=== PATIENT | male | born 1965 | race Caucasian/White ===

== ENCOUNTER 2020-07-12 15:39 | Emergency (ER) | payer OTHER ==
[~2020-07-12] VITALS: Ht 172.7 cm; Wt 81.6 kg
[2020-07-12 15:41] VITALS: BP 127/79
--- NOTE | 2020-07-12 15:50 | NUR ---
Patient ambulated to bed 7 with steady/even gait.
--- NOTE | 2020-07-12 15:53 | NUR ---
55 y/o M coming in from home with c/c left leg pain. 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 Patient states swelling to left ankle x 3 weeks. Wound noted to left big toe, patient states "that started about the same time as well." Patient states he has been without Metformin x 1 month. AccuChek 273. Patient reports associated left calf pain and swelling. Pt describes ankle pain 8/10, dull/constant, non-radiating. Patient describes left calf pain as "tightness" alleviated with ice packs and Tylenol prior to arrival. CMS intact; patient able to feel sensation and freely move left ankle and toes. Patient denies N/V/D, urinary symptoms, loss of appetite, headache, SOB, dizziness, abdominal pain, chest pain. Pt placed onto case monitor. Respirations even/unlabored. Bed locked in lowest position, side rails x 1. PMH: DM2 Meds: Metformin (no prescription fill x 1 month) NKA Sx: Denies
--- NOTE | 2020-07-12 16:27 | NUR ---
x ray at bedside.
--- NOTE | 2020-07-12 16:30 | NUR ---
Lab at bedside
--- NOTE | 2020-07-12 16:45 | NUR ---
Patient resting in semi-fowlers position. No distress noted; pt denies any pain at this time. Respirations even/unlabored. campus monitor in place. Bed locked in lowest position, side rails x 1, call light in reach.
[2020-07-12 16:48] LABS: BASOPHILS % (AUTO) 0.3 % (0.0-2.0); EOSINOPHILS # (AUTO) 0.1 K/uL (0-0.4); EOSINOPHILS % (AUTO) 0.9 % (0.0-4.0); HEMATOCRIT 38.2 % (36-52); HEMOGLOBIN 12.4 g/dL (12.0-18.0); LYMPHOCYTES # (AUTO) 1.9 K/uL (2.0-11.5); LYMPHOCYTES % (AUTO) 13.1 % (20.5-51.1); MEAN CORPUSCULAR HEMOGLOBIN 27 pg (27-31); MEAN CORPUSCULAR HGB CONC 33 g/dL (33-37); MEAN CORPUSCULAR VOLUME 83.1 fL (80-94); MONOCYTES % (AUTO) 6.9 % (1.7-9.3); NEUTROPHILS # (AUTO) 11.3 K/uL (1.8-7.7); NEUTROPHILS % (AUTO) 78.8 % (42.2-75.2); PLATELET COUNT (AUTO) 460 K/uL (140-450); RED BLOOD CELL COUNT(AUTO) 4.59 MIL/uL (4.20-6.10); RED CELL DISTRIBUTION WIDTH 14.1 % (11.6-13.7); WHITE BLOOD COUNT (AUTO) 14.3 K/uL (4.8-10.8)
--- NOTE | 2020-07-12 16:50 | NUR ---
Rt at bedside
--- NOTE | 2020-07-12 16:58 | NUR ---
EMT at bedside for EKG
--- NOTE | 2020-07-12 17:02 | NUR ---
Unable to provide urine sample at this time. PANTERA Fox made aware.
--- NOTE | 2020-07-12 17:05 | NUR ---
Patient provided with cell phone to contact family member.
[2020-07-12 17:07] LABS: ALBUMIN 2.9 g/dL (3.4-5.0); ANION GAP 13.4 (8-16); CARBON DIOXIDE 26.6 mmol/L (21-32); CREATININE 0.9 mg/dL (0.6-1.3); PROTHROMBIN TIME 9.4 secs (10.8-13.4); TOTAL BILIRUBIN 0.2 mg/dL (0.0-1.0)
--- NOTE | 2020-07-12 17:09 | NUR ---
Xray at bedside
--- NOTE | 2020-07-12 17:19 | NUR ---
2 water cups at bedside; pt encouraged to void.
[2020-07-12] MEDS ORDERED: METF-1022 PO (17:38)
[2020-07-12] MEDS ORDERED: CEPH500C16 PO (17:38)
--- NOTE | 2020-07-12 17:45 | NUR ---
Patient resting in semi-fowlers position. No distress noted; pt denies any pain at this time. Respirations even/unlabored. agile tester in place. Bed locked in lowest position, side rails x 1, call light in reach.
--- NOTE | 2020-07-12 17:51 | NUR ---
machines technician transported patient via wheelchair to CT.
--- NOTE | 2020-07-12 18:01 | NUR ---
Patient returned from CT via wheelchair, placed back onto cartography supervisor. Bed locked in lowest position, side rails x 1, call light in reach.
--- NOTE | 2020-07-12 18:36 | NUR ---
Urine sample collected, walked to lab and handed to [employer]bo dairy laboratory technician.
--- NOTE | 2020-07-12 18:36 | NUR ---
Patient resting in semi-fowlers position. Respirations even/unlabored. telemetry monitor in place. Bed locked in lowest position, side rails x 1, call light in reach.
--- NOTE | 2020-07-12 19:23 | NUR ---
Report and transfer of care given to CARLOS A Green.
--- NOTE | 2020-07-12 19:45 | NUR ---
posterior short leg splint placed on pt left leg, wrapped with alex wrap. +csm
--- NOTE | 2020-07-12 20:10 | NUR ---
PT GIVEN INSTRUCTION ON PROPER USE OF CRUTCHES. FITTED TO PT HEIGHT AND ARM LENGTH. PT DEMONSTRATED SAFE USE FOR APPROXIMATELY 40 FEET, PT STATED HE FELT COMFORTABLE WITH USE.
[2020-07-12 20:36] LABS: APPEARANCE,URINE CLEAR (CLEAR); BILIRUBIN,URINE NEGATIVE (NEGATIVE); BLOOD, URINE NEGATIVE (NEGATIVE); COLOR,URINE YELLOW (YELLOW); LEUKOCYTE ESTERASE ,URINE NEGATIVE (NEGATIVE); NITRITE, URINE NEGATIVE (NEGATIVE); UGLUCOSE 3+ (NEGATIVE)
[2020-07-12 20:38] VITALS: BP 156/80
--- NOTE | 2020-07-12 20:38 | NUR ---
Patient discharged with v/s stable. Written and verbal after care instructions given and explained. Patient alert, oriented and verbalized understanding of instructions. Ambulatory with crutches; with steady gait. All questions addressed prior to discharge. ID band removed. Patient advised to follow up with PMD. Rx of Metformin & Keflex given. Patient educated on indication of medication including possible reaction and side effects. Opportunity to ask questions provided and answered.
== END 2020-07-12 20:38 | disposition home or self-care (01) ==
LOC: MED 15:39
DX: S92.145A Nondisplaced dome fracture of left talus, initial encounter for closed fracture (principal); S92.342A Displaced fracture of fourth metatarsal bone, left foot, initial encounter for closed fracture; S92.002A Unspecified fracture of left calcaneus, initial encounter for closed fracture; S92.212A Displaced fracture of cuboid bone of left foot, initial encounter for closed fracture; E11.621 Type 2 diabetes mellitus with foot ulcer; Z79.84 Long term (current) use of oral hypoglycemic drugs; Z79.899 Other long term (current) drug therapy; X50.1XXA Overexertion from prolonged static or awkward postures, initial encounter; Y93.89 Activity, other specified; Y92.89 Other specified places as the place of occurrence of the external cause; Y99.8 Other external cause status
CPT/HCPCS: 29515; 36415; 36600; 71045; 73610; 73630; 73700; 80053; 81003; 82550; 82553; 82803; 83605; 83874; 83880; 84484; 85025; 85610; 85730; 87040; 87086; 93005; 99285

== ENCOUNTER 2020-08-06 13:41 | Emergency (ER) | payer OTHER ==
[~2020-08-06] VITALS: Ht 175.3 cm; Wt 81.6 kg
[~2020-08-06 13:41] MED LIST: CEPH500C16 PO; METF-1022 PO
[2020-08-06 14:02] VITALS: BP 162/106
--- NOTE | 2020-08-06 14:09 | NUR ---
Patient ambulated to bed 07 with steady/even gait.
--- NOTE | 2020-08-06 14:20 | NUR ---
55 y/o M brought in from home with c/c left foot pain. Patient presents A&Ox4, ambulatory and states he was seen here and discharged on 07/12/20 with prescribed Keflex. Patient states he completed the Keflex treatment and symptoms improved 4-5 days after completion and came back. Patient presents with left ankle pain and left calf swelling. Patient reports pain to ankle 9/10, sharp/intermittent, non-radiating. Patient's left calf notably swollen and +warmth noted to left calf. Patient states laying supine and RICE technique helps relief pain. Patient states resting helps his pain, however, is unable to be off his feet due to his line of work. Patient reports diabetic foot ulcer to left 1st digit has healed. No drainage, open wounds/cuts noted to left lower extremity. Pt denies N/V/D, fever/chills, abdominal pain, chest pain, dizziness, headache, urinary symptoms. 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 Bed locked in lowest position, side rails x 1, call light in reach. PMH: DM Meds: Metformin NKA Sx: Denies
--- NOTE | 2020-08-06 14:24 | NUR ---
Dr. Loera is evaluating the patient at bedside.
[2020-08-06 14:50] VITALS: BP 142/75
--- NOTE | 2020-08-06 14:50 | NUR ---
Patient discharged with v/s stable. Written and verbal after care instructions given and explained. Patient verbalized understanding. Ambulatory with steady gait. All questions addressed prior to discharge. Advised to follow up with PMD.
== END 2020-08-06 14:50 | disposition home or self-care (01) ==
LOC: MED 13:41
DX: S92.812A Other fracture of left foot, initial encounter for closed fracture (principal); E11.9 Type 2 diabetes mellitus without complications; F17.210 Nicotine dependence, cigarettes, uncomplicated; X58.XXXA Exposure to other specified factors, initial encounter; Y93.89 Activity, other specified; Y92.89 Other specified places as the place of occurrence of the external cause; Y99.8 Other external cause status
CPT/HCPCS: 99281

== ENCOUNTER 2020-12-12 12:54 | Emergency (ER) | payer OTHER ==
[~2020-12-12] VITALS: Ht 172.7 cm; Wt 77.6 kg
[2020-12-12 14:13] VITALS: BP 113/60
[2020-12-12] MEDS ORDERED: KETOROLAC 30 MG/ML VIAL IM ONE (15:00)
[2020-12-12] MEDS ORDERED: cefTRIAXone 1,000 MG in LIDOCAINE MPF 1% 2.1 ML IM ONE (15:00)
[2020-12-12] MEDS ORDERED: IBUP-2213 PO (15:04)
[2020-12-12] MEDS ORDERED: BACI1PAC6 TP (15:04)
[2020-12-12] MEDS ORDERED: CEPH-588 PO (15:04)
[2020-12-12] MEDS ORDERED: cefTRIAXone 1,000 MG VIAL ONE (15:08)
[2020-12-12] MEDS ORDERED: LIDOCAINE MPF 1% 5 ML ONE (15:09)
--- NOTE | 2020-12-12 15:45 | NUR ---
NON-ADHERENT PAD APPLIED TO RIGHT FOOT, ORHTO BOOT APPLIED. PT TOLERATED WELL.
[2020-12-12 15:49] VITALS: BP 113/60
--- NOTE | 2020-12-12 15:50 | NUR ---
Patient discharged with v/s stable. Written and verbal after care instructions given and explained. Patient alert, oriented and verbalized understanding of instructions. Ambulatory with steady gait. All questions addressed prior to discharge. ID band removed. Patient advised to follow up with PMD. Rx of KEFLEX, MOTRIN, AND BACITRACIN given. Patient educated on indication of medication including possible reaction and side effects. Opportunity to ask questions provided and answered.
== END 2020-12-12 15:50 | disposition home or self-care (01) ==
LOC: MED 12:54
DX: E11.621 Type 2 diabetes mellitus with foot ulcer (principal)
CPT/HCPCS: 96372; 99284; J0696; J1885; J2001